=== PATIENT | female | born 1945 | race Hispanic/Latino ===

== ENCOUNTER 2018-04-16 12:17 | Emergency (ER) | payer MEDICARE ==
[2018-04-16 12:18] VITALS: BMI 17.4
[2018-04-16 12:38] VITALS: RESP 18; TEMP 97.9
--- NOTE | 2018-04-16 13:01 | ED PDOC ---
Arrival/HPI - General Chief Complaint: Trauma Time Seen by Provider: 04/16/18 12:18 Historian: Patient - History of Present Illness Narrative History of Present Illness (Text): 04/16/18 12:58 73 year old female presents to the emergency department for evaluation of right wrist and right knee pain s/p trip and fall injury that occurred 1 day ago. Patient reports falling onto cement floor, landing on her right wrist and right knee but notes the pain is greater on the right wrist. Denies head injuries, loss of consciousness, fever, numbness, tingling, and any other associated symptoms. Time/Duration: 24 hours (1 day ago.) Context: Tripped Past Medical History - Provider Review Nursing Documentation Reviewed: Yes - Infectious Disease Hx of Infectious Diseases: None - Tetanus Immunization Tetanus Immunization: Unknown - Cardiac Hx Cardiac Disorders: Yes Hx Hypertension: Yes - Pulmonary Hx Respiratory Disorders: No - Neurological Hx Neurological Disorder: Yes Hx Seizures: Yes - HEENT Hx HEENT Disorder: No - Renal Hx Renal Disorder: No - Endocrine/Metabolic Hx Endocrine Disorders: No - Hematological/Oncological Hx Blood Disorders: No Hx AIDS: No - Integumentary Hx Dermatological Disorder: No - Musculoskeletal/Rheumatological Hx Musculoskeletal Disorders: No Hx Arthritis: No - Gastrointestinal Hx Gastrointestinal Disorders: No - Genitourinary/Gynecological Hx Genitourinary Disorders: No - Psychiatric Hx Psychophysiologic Disorder: No Hx Anxiety: No Hx Bipolar Disorder: No Hx Depression: No Hx Emotional Abuse: No Hx Hallucinations: No Hx Panic Disorder: No Hx Post Traumatic Stress Disorder: No Hx Psychosis: No Hx Physical Abuse: No Hx Schizophrenia: No Hx Sexual Abuse: No Hx Substance Use: No - Surgical History Hx Appendectomy: Yes Hx Cholecystectomy: Yes Hx Hysterectomy: Yes Other/Comment: eye surgery - Anesthesia Hx Anesthesia: Yes Hx Anesthesia Reactions: No Hx Malignant Hyperthermia: No - Suicidal Assessment Feels Threatened In Home Enviroment: No Family/Social History - Physician Review Nursing Documentation Reviewed: Yes Family/Social History: Unknown Family HX Smoking Status: Heavy Smoker > 10 Cigarettes Daily Hx Alcohol Use: No Hx Substance Use: No Hx Substance Use Treatment: No Allergies/Home Meds Allergies/Adverse Reactions: Allergies Penicillins Allergy (Verified 04/16/18 12:38) RASH Home Medications: Home Meds Medication Instructions Recorded Confirmed Eslicarbazepine Acetate [Aptiom] 800 mg PO DAILY 04/08/14 04/16/18 RX: Losartan [Cozaar] 25 mg PO DAILY 01/13/16 04/16/18 Review of Systems - Physician Review All systems were reviewed & negative as marked: Yes - Review of Systems Constitutional: Normal. absent: Fevers, Other ((-) loss of consciousness. (-) head injuries. ) Gastrointestinal: absent: Nausea, Vomiting Musculoskeletal: Other ((+) right wrist pain. (+) right knee pain.) Neurological: absent: Headache, Other ((-) numbness (-) tingling.) Physical Exam Vital Signs Reviewed: Yes Vital Signs Temp Pulse Resp BP Pulse Ox 04/16/18 12:36 97.9 F 71 18 159/89 H 96 Temperature: Other (159/89) Pulse: Regular Respiratory Rate: Normal Appearance: Positive for: Well-Appearing, Non-Toxic, Comfortable Mental Status: Positive for: Alert and Oriented X 3 - Systems Exam Head: No: Atraumatic, Normocephalic Extroacular Muscles: Present: EOMI Mouth: Present: Moist Mucous Membranes Neck: Present: Normal Range of Motion Respiratory/Chest: Present: Clear to Auscultation, Good Air Exchange. No: Respiratory Distress, Accessory Muscle Use, Wheezes, Rales, Rhonchi Cardiovascular: Present: Regular Rate and Rhythm, Normal S1, S2. No: Murmurs Abdomen: No: Tenderness, Distention, Peritoneal Signs Upper Extremity: Present: Normal ROM (mild decrease in ROM to the right wrist secondary to pain. ), NORMAL PULSES (+2 radial pulses.), Tenderness (to the medial and lateral aspect of the right wrist. ), Swelling (minimal swelling to the lateral and medial aspect of the right wrist.), Erythema (mild erythema to the medical and lateral aspect of the right wrist.), Neurovascularly Intact, Capillary Refill < 2s. No: Deformity, Other ((-) tenderness to the right hand. (-) no injury to the elbow. ) Lower Extremity: Present: NORMAL PULSES, Normal ROM, Neurovascularly Intact, Capillary Refill < 2 s, Other (abrasions to the right knee.). No: Tenderness (to the right knee.), Erythema, Deformity Neurological: Present: Speech Normal, Normal Sensory Function Skin: Present: Warm, Dry Psychiatric: Present: Alert, Oriented x 3, Normal Insight, Normal Concentration Medical Decision Making ED Course and Treatment: 04/16/18 13:19 Plan: -right wrist x-ray. -Motrin. Progress/Update: 2:11pm: Spoke with Dr. Hamilton regarding the patient's case, he would like CT of the wrist done, sugar tong spling placed, and patient can follow up as outpatient. Patient given 1 tab percocet for continued pain. CT done. Fiberglass sugartong splint placed to R wrist by RN. Rx written for percocet. Patient given referral to Dr. Hamilton for outpatient followup. 04/16/18 15:[address] FINDINGS: CT of the right wrist was performed in the axial plane with sagittal and coronal reconstructions. The study shows a comminuted displaced fracture of the distal radius which extends into the articular surface. The sagittal images show no significant angulation at the fracture site The carpal bones are intact. Severe degenerative changes are seen at the base of the thumb. IMPRESSION: Comminuted displaced intra-articular fracture of the distal radius without an gulation. - RAD Interpretation Narrative RAD Interpretations (Text): 04/16/18 14:01 Right wrist x-ray FINDINGS: BONES: Intra-articular fracture distal left radius. Adjacent carpal bones are. 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 No dislocation. SOFT TISSUES: Evidence of chondrocalcinosis triangular fibrocartilage. OTHER FINDINGS: None. IMPRESSION: Intra-articular fracture distal right radius. Radiology Orders: 04/16/18 12:52 WRIST, RIGHT 3 VIEWS [RAD] Stat Tool Room Attendant: Radiologist - Medication Orders Current Medication Orders: Ibuprofen (Motrin Tab) 600 mg PO STAT STA Stop: 04/16/18 12:53 - Scribe Statement The provider has reviewed the documentation as recorded by the Scribe (Cassandra Rai) Provider Attestation: All medical record entries made by the Scribe were at my direction and personally dictated by me. I have reviewed the chart and agree that the record accurately reflects my personal performance of the history, physical exam, medical decision making, and the department course for this patient. I have also personally directed, reviewed, and agree with the discharge instructions and disposition. Disposition/Present on Arrival - Present on Arrival Any Indicators Present on Arrival: No History of DVT/PE: No History of Uncontrolled Diabetes: No Urinary Catheter: No History of Decub. Ulcer: No History Surgical Site Infection Following: None - Disposition Have Diagnosis and Disposition been Completed?: Yes Diagnosis: Distal radius fracture, right Disposition: HOME/ ROUTINE Disposition Time: 15:30 Condition: STABLE Discharge Instructions (ExitCare): Radius Fracture (DC) Additional Instructions: WES RODRÍGUEZ, thank you for letting us take care of you today. Your provider was Francia Kiran MD and you were treated for HAND AND WRIST INJURY. The [facility] medical care you received today was directed at your acute symptoms. If you were prescribed any medication, please fill it and take as directed. It may take several days for your symptoms to resolve. Return to the Emergency Department if your symptoms worsen, do not improve, or if you have any other problems. Please contact your doctor or call one of the physicians/clinics you have been referred to that are listed on the Patient Visit Information form that is included in your discharge packet. Bring any paperwork you were given at discharge with you along with any medications you are taking to your follow up visit. Our treatment cannot replace ongoing medical care by a primary care provider outside of the emergency department. Thank you for allowing the [facility] team to be part of your care today. If you had an X-Ray or CT scan: A Radiologist will review the ED reading if any change in treatment is needed we will contact you. If you had a blood, urine, or wound culture: It will take several days for the results, if any change in treatment is needed we will contact you. If you had an STI test: It will take 48 hours for the results. Please call after 1 week if you have not heard back. Prescriptions: oxyCODONE/Acetaminophen [Percocet 5/325 mg Tab] 1 tab PO Q6H PRN #9 tab PRN Reason: Pain, Severe (8-10) Referrals: Evgeny Collado MD [Primary Care Provider] - Follow up with primary Amairani Hamilton MD [Staff Provider] - Follow up with primary Forms: [employer] ([place])
--- NOTE | 2018-04-16 13:59 | RAD ---
Date of service: 04/16/2018 PROCEDURE: Right Wrist Radiographs. HISTORY: injury COMPARISON: None. FINDINGS: BONES: Intra-articular fracture distal left radius. Adjacent carpal bones are. 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 No dislocation. SOFT TISSUES: Evidence of chondrocalcinosis triangular fibrocartilage. OTHER FINDINGS: None. IMPRESSION: Intra-articular fracture distal right radius.
[2018-04-16] MEDS ORDERED: Oxycodone/Acetaminophen 5/325 mg Tab PO STA (14:15)
[2018-04-16] MEDS ORDERED: Bacitracin 500 Units/gm Oint Foilpak UD ONE (15:01)
--- NOTE | 2018-04-16 15:33 | CT ---
Date of service: 04/16/2018 PROCEDURE: CT of the right wrist HISTORY: distal radius fx COMPARISON: TECHNIQUE: Radiation dose: Total exam DLP = 240.83 mGy-cm. This CT exam was performed using one or more of the following dose reduction techniques: Automated exposure control, adjustment of the mA and/or kV according to patient size, and/or use of iterative reconstruction technique. FINDINGS: CT of the right wrist was performed in the axial plane with sagittal and coronal reconstructions. The study shows a comminuted displaced fracture of the distal radius which extends into the articular surface. The sagittal images show no significant angulation at the fracture site The carpal bones are intact. Severe degenerative changes are seen at the base of the thumb. IMPRESSION: Comminuted displaced intra-articular fracture of the distal radius without angulation.
[2018-04-16 16:07] VITALS: BP 137/77; PULSE 67; O2SAT 98
== END 2018-04-16 16:01 | disposition home or self-care (01) ==
LOC: ED 12:17
DX: S52.501A Unspecified fracture of the lower end of right radius, initial encounter for closed fracture (principal); W01.0XXA Fall on same level from slipping, tripping and stumbling without subsequent striking against object, initial encounter; Y92.9 Unspecified place or not applicable

== ENCOUNTER 2018-04-23 06:05 | Day surgery (SDC) | payer MEDICARE ==
[2018-04-22 10:37] VITALS: BMI 18.3
[2018-04-23] MEDS ORDERED: Oxycodone/Acetaminophen 5/325 mg Tab PO PRN (07:28)
--- NOTE | 2018-04-23 07:28 | CP.PCM.PN ---
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 No rx listed. Patient counseled on the risks of addiction, physical or psychological dependence, and overdose associated with opioid drugs and the danger of taking opioid drugs with alcohol and other central nervous system depressants, and cautioned patient on storage and disposal. Objective - Vital Signs/Intake and Output Vital Signs (last 24 hours): Temp Pulse Resp BP Pulse Ox 98.3 F 63 18 161/93 H 100 04/23/18 06:37 04/23/18 06:37 04/23/18 06:37 04/23/18 06:37 04/23/18 06:37
[2018-04-23] MEDS ORDERED: Sodium Chloride 0.9% 10 ML IV ONE (07:37)
[2018-04-23] MEDS ORDERED: Etomidate 20 mg/10ml Inj IV ONE (07:44)
[2018-04-23] MEDS ORDERED: Midazolam 2 MG/2 ML VIAL ONE (07:44)
[2018-04-23] MEDS ORDERED: Succinylcholine 200 mg/10 ml Inj IV ONE (07:45)
[2018-04-23] MEDS ORDERED: Rocuronium 10 mg/ml (5 ml) ONE (07:45)
[2018-04-23] MEDS ORDERED: Bupivacaine 0.5% 50 ML IJ ONE (07:53)
[2018-04-23] MEDS ORDERED: Clindamycin 150 mg/mL Inj ONE (07:57)
[2018-04-23] MEDS ORDERED: ePHEDrine 50 mg/ml Inj ONE (08:21)
[2018-04-23] MEDS ORDERED: Neostigmine Methylsulfate 3mg/3ml Syringe IV ONE (09:41)
[2018-04-23] MEDS ORDERED: Glycopyrrolate 0.2 mg/ml (2ml vial) ONE (09:41)
[2018-04-23] MEDS ORDERED: Lactated Ringer's 1,000 ML IV SCH (10:15)
[2018-04-23] MEDS ORDERED: HYDROmorphone 0.5 mg/0.5 ml ISec IVP PRN ×2 (10:15→10:20)
--- NOTE | 2018-04-23 10:20 | PCM.SURG1 ---
Surgeon's Initial Post Op Note - Surgeon's Notes Surgeon: Parker Kaufman MD Casing Flusher: Ronald Rosario PA-C Type of Anesthesia: General Endo Anesthesia Administered By: Dr. Bacon Pre-Operative Diagnosis: right distal radius fracture Operative Findings: see full note Post-Operative Diagnosis: same Operation Performed: ORIF R distal radius fx Specimen/Specimens Removed: none Estimated Blood Loss: EBL {In ML}: 10 Blood Products Given: N/A Drains Used: No Drains Post-Op Condition: Fair Date of Surgery/Procedure: 04/23/18 Time of Surgery/Procedure: 10:20
--- NOTE | 2018-04-23 11:03 | RAD ---
Date of service: 04/23/2018 PROCEDURE: Fluoroscopy up to 1 hr. HISTORY: RIGHT WRIST ORIF COMPARISON: None TECHNIQUE: Standard protocol for this study/examination. FINDINGS: Total fluoroscopic time (continuous mode) utilized during the procedure 72.0 seconds. Total exam DLP: 1.26 (mGy). IMPRESSION: Less than 1 hr fluoroscopic assistance provided during performance of the procedure.
[2018-04-23 11:38] VITALS: TEMP 98.4
[2018-04-23] MEDS ORDERED: Oxycodone/Acetaminophen 5/325 mg Tab PO ONE (11:38)
[2018-04-23] MEDS ORDERED: Oxycodone/Acetaminophen 5/325 mg Tab ONE (11:40)
--- NOTE | 2018-04-23 11:42 | RAD ---
Date of service: 04/23/2018 PROCEDURE: Right Wrist Radiographs. HISTORY: S/P orif r distal radius fx patient in PACU COMPARISON: None. FINDINGS: BONES: Satisfactory and anatomic alignment of major fracture fragments No evidence of orthopedic hardware failure. JOINTS: Normal. No dislocation. SOFT TISSUES: Normal. OTHER FINDINGS: None. IMPRESSION: Satisfactory postoperative status.
[2018-04-23] MEDS ORDERED: HYDROmorphone 0.5 mg/0.5 ml ISec ONE (11:54)
[2018-04-23 12:32] VITALS: O2SAT 95
[2018-04-23 16:01] VITALS: BP 150/73; PULSE 61; RESP 18
--- NOTE | 2018-04-23 21:07 | OP ---
PROCEDURE DATE: 04/23/2018 PREOPERATIVE DIAGNOSIS: Right distal radius intra-articular fracture. POSTOPERATIVE DIAGNOSIS: Right distal radius intra-articular fracture. PROCEDURE: Open reduction and internal fixation of right distal radius fracture. SURGEON: Jean Pierre Kaufman MD. ENVIRONMENTAL SUSTAINABILITY MANAGER: Dr. Kaufman was assisted by Rosemary Payne, the physician ice cream freezer assistant. Ms. Payne was scrubbed and present throughout the entire case and assisted in the patient positioning, retraction, and wound closure. ANESTHESIA: General. ESTIMATED BLOOD LOSS: 5 mL. COMPLICATIONS: None. TOURNIQUET TIME: 79 minutes at 250 mmHg. IMPLANT: Synthes distal radial volar locking plate. INDICATION FOR PROCEDURE: This is a 73-year-old female, who presented status post fall with right wrist pain and deformity. Clinical and radiographic examination was consistent with a displaced intra-articular distal radius fracture. Recommendations were for an open reduction and internal fixation of the fracture. The risks, benefits, and alternatives of the procedure were discussed with the patient including the possibility of non-union, malunion, and infection as well as symptomatic hardware were discussed and informed consent was obtained. DESCRIPTION OF PROCEDURE: After the surgical site was signed and verified in the preoperative holding area, the patient was taken to the operating room and placed supine on the operating room table. After administration of general anesthesia, the patient received 600 mg clindamycin IV. Tourniquet was placed about the right arm. Care was taken to make sure all bony prominences and nerves were well padded and protected and the right upper extremity was prepped and draped in the usual sterile fashion. After it was exsanguinated, the tourniquet was inflated. Soft tissue and bony landmarks were identified about the volar aspect of the distal forearm and approximately 5-cm longitudinal incision was made. Soft tissues were dissected down bluntly and carefully down to the fracture site. Once the fracture was exposed, any fracture hematoma was evacuated and the wound was copiously irrigated with antibiotic saline solution. At this point, an open reduction was performed. The patient was noted to have some comminuted and some osteoporotic bone and any small tiny bone fragments were removed. At this point, an open reduction was performed and reduction was provisionally held using multiple K-wires. Reduction was checked using the image intensifier both AP, lateral, and oblique planes. Satisfied, a Synthes 3-hole distal radial volar plate was applied and held in place with K-wires. Position of the plate was checked using an image intensifier. Satisfied, the fracture was then fixed using 5 locking screws distally and 2 locking and one cortical screw in the shaft. Once all the screws had been placed, the K-wires removed, and position of the hardware was confirmed using the image intensifier. Satisfied, the wound was then copiously irrigated and closed in a layered fashion. Tourniquet was then deflated, sterile dressing was applied, and a volar splint was placed. The patient was awakened from anesthesia and taken to recovery room in stable condition. Jean Pierre Kaufman MD
== END 2018-04-23 15:15 | disposition home or self-care (01) ==
LOC: SDS 06:05
PROVIDERS: ATTEND Orthopaedic Surgery
DX: S52.571A Other intraarticular fracture of lower end of right radius, initial encounter for closed fracture (principal); Z91.81 History of falling; I10 Essential (primary) hypertension; G40.909 Epilepsy, unspecified, not intractable, without status epilepticus; Z88.0 Allergy status to penicillin; G31.84 Mild cognitive impairment of uncertain or unknown etiology; M81.0 Age-related osteoporosis without current pathological fracture; Z90.710 Acquired absence of both cervix and uterus; Z90.722 Acquired absence of ovaries, bilateral
CPT/HCPCS: 25608; 73110; C1713 ×6; J0330; J1170; J2250; J2710; J3010; J7120 ×2

== ENCOUNTER 2018-07-16 14:11 | Outpatient (CLI) | payer MEDICARE, OTHER | END 2018-07-16 14:12 | disposition home or self-care (01) | LOC: RAD 14:11 ==